=== PATIENT | female | born 1995 | race Caucasian/White ===

== ENCOUNTER → 2017-12-21 14:26 | Outpatient (CLI) | payer MEDICAID, SELFPAY ==
[2017-12-21 16:08] LABS: Absolute Neutrophil Count 8.5 X10^3/uL (2.0-7.7); Basophil# 0.01 X10^3/uL; Basophil% 0.1 % (0-1); Eosinophil# 0.07 X10^3/uL; Eosinophils% 0.6 % (0-5); Hematocrit 35.5 % (37-47); Mean Corp Hgb Conc 33.8 g/gl (32-36); Mean Corpuscular Volume 88.8 fL (81-99); Mean Platelet Vol. 10.2 fl (6.2-12.0); Monocyte# 0.92 X10^3/uL; Monocyte% 8.5 % (0-10); Neutrophil % 78.5 % (47-70); Platelet Count 227 K/mm3 (150-450); RBC Distribution Width CV 13.2 % (11.6-14.6); RBC Distribution Width SD 41.9 fl (35.1-43.9); White Blood Count 10.8 K/mm3 (4.4-11.0)
[2017-12-21 16:10] LABS: POSITIVE COUNT NO; POSITIVE DIFFERENTIAL NO; POSITIVE MORPHOLOGY NO
[2017-12-21 16:31] LABS: Thyroid Stim Hormone (TSH) 1.33 uIU/mL (0.358-3.74)
[2017-12-21 16:56] LABS: Color, Urine Straw (Yellow); Glucose, Dipstick Normal (Normal); Ketone-Dipstick Negative (Negative); Leukocyte Esterase-Dipstick Negative /ul (Negative); Nitrite-Dipstick Negative (Negative); Occult Blood-Urine Negative /ul (Negative); Protein-Dipstick Negative (Negative); Specific Gravity, Urine 1.015 (1.002-1.030); Urine Bilirubin Dipstick Negative (Negative); Urine Clarity Clear (Clear); Urine Urobilinogen Normal (Normal); Urine pH 6.5 (5.0 - 8.0)
[2017-12-21 17:08] LABS: Amphetamine Urine VISTA NEGATIVE (<1000 ng/mL); Barbiturate Urine VISTA NEGATIVE (< 200 ng/mL); Benzodiazepine Urine VISTA NEGATIVE (< 200 ng/mL); Cocaine Urine VISTA NEGATIVE (< 300 ng/mL); Ecstacy Urine VISTA NEGATIVE (< 500 ng/mL); Methadone Urine VISTA NEGATIVE (< 300 ng/mL); PCP Urine VISTA NEGATIVE (< 25 ng/mL); THC Urine VISTA NEGATIVE (< 50 ng/mL); Vista UDS pH Range 6
[2017-12-21 17:47] LABS: Chlamydia Trachomatis by PCR Negative (Negative); Neisserai gonorrhoeae by PCR Negative (Negative); Probe Check PASS; Sample Adequacy Control PASS; Specimen Processing Control PASS
[2017-12-21 18:56] LABS: COTININE Drug Screen Negative (<200 ng/mL)
[2017-12-22 02:34] LABS: Prenatal RPR NONREACTIVE (NONREACTIVE)
[2017-12-22 09:26] LABS: HIV - WCH Non-Reactive (Nonreactive); Rubella IgG > 500.0 IU/mL
[2017-12-22 11:28] LABS: HEPATITIS B SURFACE AG Negative (Negative); Hep C Antibodies <0.1 s/co ratio (0.0-0.9)
== END ==
PROVIDERS: Visit Provider Obstetrics & Gynecology
DX: Z34.82 Encounter for supervision of other normal pregnancy, second trimester (principal)
CPT/HCPCS: 36415; 80307; 81002; 84443; 85025; 86703; 86762; 86803; 87340; 87491; 87591

== ENCOUNTER → 2018-03-01 14:06 | Outpatient (CLI) | payer MEDICAID, SELFPAY ==
[2018-03-01 15:34] LABS: Hematocrit 31.3 % (37-47); Hemoglobin 10.4 g/dl (12.0-15.0); Mean Corp Hgb Conc 33.2 g/gl (32-36); Mean Corpuscular Hgb 29.5 pg (27.0-32.0); Mean Corpuscular Volume 88.7 fL (81-99); Mean Platelet Vol. 9.8 fl (6.2-12.0); Platelet Count 208 K/mm3 (150-450); RBC Distribution Width CV 13.6 % (11.6-14.6); RBC Distribution Width SD 44.2 fl (35.1-43.9); Red Blood Count 3.53 M/mm3 (4.2-5.4); White Blood Count 8.1 K/mm3 (4.4-11.0)
[2018-03-01 15:45] LABS: Scan Indicated on CBC? Y/N NO
[2018-03-01 15:48] LABS: Glucose Challenge Gest 1H 50g 156 mg/dL (70-140)
== END ==
PROVIDERS: Visit Provider Obstetrics & Gynecology
DX: Z34.83 Encounter for supervision of other normal pregnancy, third trimester (principal)
CPT/HCPCS: 36415; 82950; 85027

== ENCOUNTER → 2018-03-12 06:53 | Outpatient (CLI) | payer MEDICAID, SELFPAY ==
[2018-03-12 07:48] LABS: Glucose GTT-Gestation. Fasting 81 mg/dL (<105)
[2018-03-12 09:55] LABS: Glucose GTT-Gestational 1 Hr 158 mg/dL (<190)
[2018-03-12 09:56] LABS: Glucose GTT-Gestational 2 Hr 135 mg/dL (<165)
[2018-03-12 11:46] LABS: Glucose GTT-Gestational 3 Hr 125 L (<145)
== END ==
PROVIDERS: Family Provider Family Medicine; PCP Family Medicine; Visit Provider Obstetrics & Gynecology
DX: O24.912 Unspecified diabetes mellitus in pregnancy, second trimester (principal); Z3A.00 Weeks of gestation of pregnancy not specified
CPT/HCPCS: 36415; 82951; 82952

== ENCOUNTER → 2018-04-26 16:09 | Outpatient (CLI) | payer MEDICAID, SELFPAY ==
[2018-04-26 17:05] LABS: Hematocrit 29.8 % (37-47); Hemoglobin 9.7 g/dl (12.0-15.0); Mean Corp Hgb Conc 32.6 g/gl (32-36); Mean Corpuscular Volume 86.1 fL (81-99); Mean Platelet Vol. 11.4 fl (6.2-12.0); Platelet Count 156 K/mm3 (150-450); RBC Distribution Width CV 13.7 % (11.6-14.6); RBC Distribution Width SD 42.7 fl (35.1-43.9); Red Blood Count 3.46 M/mm3 (4.2-5.4)
[2018-04-26 17:06] LABS: Scan Indicated on CBC? Y/N NO
[2018-04-26 17:07] LABS: International Normalized Ratio 1.1; Prothrombin Time (Protime)PT. 13.8 SECONDS (11.7-14.9)
[2018-04-26 17:08] LABS: Partial Thromboplast Time 29.7 Seconds (24.1-36.2)
[2018-04-26 17:15] LABS: AST(SGOT) 15 U/L (15-37); Alanine Aminotransfer ALT/SGPT 14 U/L (13-56); Creatinine, Serum 0.65 mg/dL (0.55-1.02); EST Glomerular Filtration Rate 124 mL/min (>60); Est Glom Filt Rate - Afr Amer 150 mL/min (>60); Uric Acid 6.8 mg/dL (2.6-6.0)
[2018-04-26 18:37] LABS: Group B Strep DNA By PCR Negative (Negative); Internal Control PASS; Probe Check PASS; Specimen Processing Control PASS
== END ==
PROVIDERS: Family Provider Family Medicine; PCP Family Medicine; Visit Provider Obstetrics & Gynecology
DX: O14.03 Mild to moderate pre-eclampsia, third trimester (principal); Z3A.36 36 weeks gestation of pregnancy
CPT/HCPCS: 36415; 82565; 84450; 84460; 84550; 85027; 85610; 85730; 87081; 87653

== ENCOUNTER → 2018-04-27 16:24 | Outpatient (CLI) | payer MEDICAID, SELFPAY ==
[2018-04-27 17:15] LABS: 24HR. UA Prot. Total Volume 3000 mL; Urine Protein (24 Hour) 28.8 mg/dL (<11.9)
== END ==
PROVIDERS: Visit Provider Obstetrics & Gynecology
DX: O14.03 Mild to moderate pre-eclampsia, third trimester (principal); Z3A.36 36 weeks gestation of pregnancy
CPT/HCPCS: 81050; 84156

== ENCOUNTER 2018-04-28 09:20 | Outpatient (CLI) | payer MEDICAID, SELFPAY ==
[2018-04-28 09:53] VITALS: BMI 40.0
[2018-04-28 10:25] LABS: ROM Internal Control Test YES-OK TO RESULT pt. (Internal QC); ROM Patient Test Negative (Negative)
--- NOTE | 2018-04-28 12:17 | OB.TRI.NOTE ---
- Problem List (1) 36 weeks gestation of Status: Acute (2) Pre-eclampsia, mild to moderate, third trimester Status: Acute (3) False labor before 37 completed weeks of gestation in third trimester Status: Acute History of Present Illness Date of Service: 04/28/18 Was patient seen by the physician?: Yes Reason For Visit: R/O LABOR Final JOSELITO: 05/23/18 Final JOSELITO Source: US <20 weeks Gestational age: 36 Weeks and 3 Days History of Present Illness: 22yo G1 @ 36 3/7wga presents with c/o fluid leaking and intermittent contractions. She is accompanied today by the father of the baby, Tye, and her parents. Denies vaginal bleeding. Fetus is active. On review of records patient with elevated BPs since 31 weeks gestational age and preeclamptic labs performed on 04/26-04/27. She denies pre-existing hypertension before , headaches, vision changes, shortness of breath or upper abdominal pain apart from menstrual like cramping sensation. 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 She is currently complete pre-requisites and does not do vigorous activity during the day. Allergies No Known Allergies Allergy (Verified 04/28/18 09:50) Physical Exam Vitals: BP 141-157/87-97 P 80 R 18 T 98.7 General: Alert, Oriented x3, Cooperative, No apparent distress HEENT: Atraumatic, Normocephalic Cardiovascular: Regular rate, Regular Rhythm, Normal S1, Normal S2 Lungs: Clear to auscultation, Normal air movement Abdomen: Soft, Non Tender, Non-Distended, Gravid Neurological: Neuro grossly intact, - - +1 b/l LE DTRs, +2 b/l UE DTRs, no clonus Estimated gestational size: Appropriate for gestational size Cervix Dilation (cm): 1 Station: -2 Effacement (%): 60 - cervix exam per NINO Coyle NST - FHR Rate Baby A Baseline: 135 Variability:: Moderate Accelerations:: 15 x 15 Decelerations:: None NST Reactive:: Yes FHR Category:: Category I Uterine Activity:: 2/10 min Impression/Plan Abnormal Lab Results 04/28/18 09:49 Vag Amniotic Fld Detect Negative A/P: 22yo G1 @ 36 3/7 wga with False labor < 37wga Preeclampsia without severe features -NST reactive -ROM plus negative and cervix not c/w labor -Prior labs reviewed: 04/27/18 24h urine protein 864mg 04/26/18 ALT 14, AST 15, Uric acid 6.8, Cr 0.65, PT/INR wnl, Hgb 9.7, Plt 156 -Discussed with patient and her family diagnosis of preeclampsia, what it is and potential signs and effects. Advise betamethasone injection as increased risk for iatragenic late delivery. Betamethasone side effects reviewed. Plan for repeat dosing in 24h with BP check. Will need NST with next visit, scheduled for 05/02/18. Si/sx preeclampsia requiring medical attention reviewed. Recommend delivery at 37+ weeks if remains unchanged. Advised to avoid stressful activities, otherwise, continue current level of activity. May continue schooling online. Code Visit Office Visits / Consults: [id number] OV L2 New
[2018-04-28] MEDS: Betamethasone/Betamethasone 30 MG/5 ML Vial 12 MG IM (12:18)
== END 2018-04-28 12:25 | disposition home or self-care (01) ==
LOC: WPOUT 09:40 → WP 09:41
PROVIDERS: Family Provider Family Medicine; PCP Family Medicine; Visit Provider Obstetrics & Gynecology
DX: O14.03 Mild to moderate pre-eclampsia, third trimester (principal); Z3A.36 36 weeks gestation of pregnancy; O47.03 False labor before 37 completed weeks of gestation, third trimester
CPT/HCPCS: 59025; 59050; 84112; 96372; 99218; G0378; J0702

== ENCOUNTER 2018-04-29 12:30 | Outpatient (CLI) | payer MEDICAID, SELFPAY ==
[2018-04-29] MEDS: Betamethasone/Betamethasone 30 MG/5 ML Vial 12 MG IM (12:40)
--- NOTE | 2018-04-30 21:46 | OB.TRI.PN ---
Progress Notes Date of Service: 04/29/18 Progress Note: 22yo G1 @ 36 4/7wga with preeclampsia without severe features presents for blood pressure check and betamethasone #2 of 2. Vitals reviewed, no worsening of BPs and patient asymptomatic per RN ROS. Betamethasone given and patient discharged to home. f/u as scheduled this week.
== END 2018-04-29 13:00 | disposition home or self-care (01) ==
LOC: WPOUT 12:38 → WP 12:38
PROVIDERS: Family Provider Family Medicine; PCP Family Medicine; Visit Provider Obstetrics & Gynecology
DX: O14.93 Unspecified pre-eclampsia, third trimester (principal); Z3A.36 36 weeks gestation of pregnancy
CPT/HCPCS: 96372; 99218; G0378; J0702

== ENCOUNTER 2018-05-04 07:24 | Inpatient (IN) | payer MEDICAID, SELFPAY ==
[2018-05-04 07:32] VITALS: BMI 42.3
[2018-05-04] MEDS: Lactated Ringers 1,000 ML 50 ML IV ×2 (08:10→13:50)
[2018-05-04 08:38] LABS: Hematocrit 29.4 % (37-47); Hemoglobin 9.6 g/dl (12.0-15.0); Mean Corp Hgb Conc 32.7 g/gl (32-36); Mean Corpuscular Volume 85.7 fL (81-99); Platelet Count 156 K/mm3 (150-450); RBC Distribution Width CV 13.9 % (11.6-14.6); Red Blood Count 3.43 M/mm3 (4.2-5.4)
[2018-05-04 08:40] LABS: Scan Indicated on CBC? Y/N NO
[2018-05-04 08:43] LABS: International Normalized Ratio 1.1; Prothrombin Time (Protime)PT. 14.2 SECONDS (11.7-14.9)
[2018-05-04 08:44] LABS: Partial Thromboplast Time 29.1 Seconds (24.1-36.2)
[2018-05-04] MEDS: Oxytocin 30 units/NS 500 ml 30 UNITS/500 ML IV.SOLN IV (08:49)
[2018-05-04 08:58] LABS: AST(SGOT) 53 U/L (15-37); Alanine Aminotransfer ALT/SGPT 163 U/L (13-56); Creatinine, Serum 0.74 mg/dL (0.55-1.02); EST Glomerular Filtration Rate 107 mL/min (>60); Est Glom Filt Rate - Afr Amer 129 mL/min (>60); Estimated Creatinine Clearance 91.51 ml/min; Uric Acid 8.1 mg/dL (2.6-6.0)
[2018-05-04] MEDS: Labetalol 100 MG Tablet PO (09:34)
[2018-05-04] MEDS: Labetalol 100 MG/20 ML Vial 20 MG IV ×3 (10:09→20:47)
[2018-05-04] MEDS: Mag Hydrox/Al Hydrox/Simeth 30 ML UDC PO (10:19)
[2018-05-04 10:20] LABS: Protein, Urine (Random) 260.1 mg/dL (<11.9); Protein:Creat Ratio 5582 mg/g CRE (0-200)
[2018-05-04] MEDS: Labetalol 100 MG/20 ML Vial 40 MG IV (12:09)
[2018-05-04] MEDS: fentaNYL-bupivacaine (epidural) 100 ML BAG EPIDURAL (13:00)
[2018-05-04] MEDS: Magnesium Sulfate 20 GM/500 ML BAG IV ×2 (13:41→23:42)
--- NOTE | 2018-05-04 16:16 | PCM.PN.OB ---
Subjective: No specific complaints. Has epidural in place. No complaints of visual disturbances or headache. Objective: AFeb BP now stable in 140/70 range. - Physical Exam General: Alert, Oriented x3, Cooperative, No apparent distress Lungs: Normal air movement Cardiovascular: Regular rate, Regular Rhythm Abdomen: Non Tender, Gravid, Appropriate for Gestational Age Extremities: Edema - 2+ pedal and edema of lower abdomen Skin: No rashes Neurological: Neuro grossly intact Psych/Mental Status: Normal Affect Comment: 5cm/90/0 Weight: 224 lb 3.362 oz Body Mass Index (BMI) 42.3 Laboratory Tests Past 24 Hrs 05/04/18 05/04/18 05/04/18 08:15 08:15 08:15 WBC 9.0 RBC 3.43 L Hgb 9.6 L Hct 29.4 L MCV 85.7 MCH 28.0 MCHC 32.7 RDW 13.9 RDW Differential 43.0 Plt Count 156 MPV 11.0 PT 14.2 INR 1.1 APTT 29.1 Creatinine Estim Creat Clear Calc Est GFR (MDRD) Af Amer Est GFR (MDRD) Non-Af Uric Acid AST ALT U Random Total Protein Urine Creatinine Protein/Creatinin Ratio Blood Type AB POSITIVE Antibody Screen NEGATIVE 05/04/18 05/04/18 08:15 08:15 WBC RBC Hgb Hct MCV MCH MCHC RDW RDW Differential Plt Count MPV PT INR APTT Creatinine 0.74 Estim Creat Clear Calc 91.51 Est GFR (MDRD) Af Amer 129 Est GFR (MDRD) Non-Af 107 Uric Acid 8.1 H AST 53 H ALT 163 H U Random Total Protein 260.1 H Urine Creatinine 46.60 Protein/Creatinin Ratio 5582 H Blood Type Antibody Screen Medical Necessity - Tobacco Use Smoking Status: Never smoker Assessment/Plan All Active Problems 36 weeks gestation of (Acute) Pre-eclampsia, mild to moderate, third trimester (Acute) False labor before 37 completed weeks of gestation in third trimester (Acute) Admitted with preeclampsia with elevated LFTs, uric acid and proteinuria. Now on pitocin at 5mu/min. Magnesium sulfate prophylaxis started. BP stable now after labetalol IV and PO. Continue monitoring for progress. Consider IUPC.
--- NOTE | 2018-05-04 17:38 | PCM.PN.OB ---
Subjective: Comfortable. Objective: Afeb VSS. FHR tracing CAT 1. - Physical Exam General: Alert, Oriented x3, Cooperative, No apparent distress Abdomen: Non Tender, Gravid, Appropriate for Gestational Age Extremities: No edema Skin: No rashes Neurological: Neuro grossly intact Psych/Mental Status: Normal Affect Comment: FD 0 station Weight: 224 lb 3.362 oz Body Mass Index (BMI) 42.3 Laboratory Tests Past 24 Hrs 05/04/18 05/04/18 05/04/18 08:15 08:15 08:15 WBC 9.0 RBC 3.43 L Hgb 9.6 L Hct 29.4 L MCV 85.7 MCH 28.0 MCHC 32.7 RDW 13.9 RDW Differential 43.0 Plt Count 156 MPV 11.0 PT 14.2 INR 1.1 APTT 29.1 Creatinine Estim Creat Clear Calc Est GFR (MDRD) Af Amer Est GFR (MDRD) Non-Af Uric Acid AST ALT U Random Total Protein Urine Creatinine Protein/Creatinin Ratio Blood Type AB POSITIVE Antibody Screen NEGATIVE 05/04/18 05/04/18 08:15 08:15 WBC RBC Hgb Hct MCV MCH MCHC RDW RDW Differential Plt Count MPV PT INR APTT Creatinine 0.74 Estim Creat Clear Calc 91.51 Est GFR (MDRD) Af Amer 129 Est GFR (MDRD) Non-Af 107 Uric Acid 8.1 H AST 53 H ALT 163 H U Random Total Protein 260.1 H Urine Creatinine 46.60 Protein/Creatinin Ratio 5582 H Blood Type Antibody Screen Medical Necessity - Tobacco Use Smoking Status: Never smoker Assessment/Plan All Active Problems 36 weeks gestation of (Acute) Pre-eclampsia, mild to moderate, third trimester (Acute) False labor before 37 completed weeks of gestation in third trimester (Acute) Now starting pushing efforts. Expect .
--- NOTE | 2018-05-04 18:11 | PCM.PN.OB ---
Subjective: More comfortable after second epidural placed. Objective: AFeb BP stable. FHR CAT 1 tracing - Physical Exam General: Alert, Oriented x3, Cooperative, No apparent distress Cardiovascular: Regular rate, Regular Rhythm Abdomen: Non Tender, Gravid, Appropriate for Gestational Age Extremities: Edema - 2+ Skin: No rashes Neurological: Neuro grossly intact Psych/Mental Status: Normal Affect Comment: CE 7/100/0 Weight: 224 lb 3.362 oz Body Mass Index (BMI) 42.3 Laboratory Tests Past 24 Hrs 05/04/18 05/04/18 05/04/18 08:15 08:15 08:15 WBC 9.0 RBC 3.43 L Hgb 9.6 L Hct 29.4 L MCV 85.7 MCH 28.0 MCHC 32.7 RDW 13.9 RDW Differential 43.0 Plt Count 156 MPV 11.0 PT 14.2 INR 1.1 APTT 29.1 Creatinine Estim Creat Clear Calc Est GFR (MDRD) Af Amer Est GFR (MDRD) Non-Af Uric Acid AST ALT U Random Total Protein Urine Creatinine Protein/Creatinin Ratio Blood Type AB POSITIVE Antibody Screen NEGATIVE 05/04/18 05/04/18 08:15 08:15 WBC RBC Hgb Hct MCV MCH MCHC RDW RDW Differential Plt Count MPV PT INR APTT Creatinine 0.74 Estim Creat Clear Calc 91.51 Est GFR (MDRD) Af Amer 129 Est GFR (MDRD) Non-Af 107 Uric Acid 8.1 H AST 53 H ALT 163 H U Random Total Protein 260.1 H Urine Creatinine 46.60 Protein/Creatinin Ratio 5582 H Blood Type Antibody Screen Medical Necessity - Tobacco Use Smoking Status: Never smoker Assessment/Plan All Active Problems 36 weeks gestation of (Acute) Pre-eclampsia, mild to moderate, third trimester (Acute) False labor before 37 completed weeks of gestation in third trimester (Acute) Progressing in labor. BP stable. Continues on magnesium sulfate prophylaxis.
[2018-05-04] MEDS: Ondansetron 4 MG/2 ML Vial IV (21:16)
--- NOTE | 2018-05-04 21:56 | PCM.PN.OB ---
Subjective: Uncomfortable despite epidural. Objective: Afeb BP 140s/80-90s - Physical Exam General: Alert, Oriented x3, Cooperative, No apparent distress Abdomen: Soft, Gravid, Appropriate for Gestational Age Extremities: Edema - 2+ Neurological: Neuro grossly intact Psych/Mental Status: Normal Affect Comment: FD Weight: 224 lb 3.362 oz Body Mass Index (BMI) 42.3 Intake and Output for Last 24 Hours 05/02/18 05/03/18 05/04/18 23:59 23:59 23:59 Intake Total 2200 / 2200 Output Total 1300 / 1300 Balance 900 / 900 Laboratory Tests Past 24 Hrs 05/04/18 05/04/18 05/04/18 08:15 08:15 08:15 WBC 9.0 RBC 3.43 L Hgb 9.6 L Hct 29.4 L MCV 85.7 MCH 28.0 MCHC 32.7 RDW 13.9 RDW Differential 43.0 Plt Count 156 MPV 11.0 PT 14.2 INR 1.1 APTT 29.1 Creatinine Estim Creat Clear Calc Est GFR (MDRD) Af Amer Est GFR (MDRD) Non-Af Uric Acid AST ALT U Random Total Protein Urine Creatinine Protein/Creatinin Ratio Blood Type AB POSITIVE Antibody Screen NEGATIVE 05/04/18 05/04/18 08:15 08:15 WBC RBC Hgb Hct MCV MCH MCHC RDW RDW Differential Plt Count MPV PT INR APTT Creatinine 0.74 Estim Creat Clear Calc 91.51 Est GFR (MDRD) Af Amer 129 Est GFR (MDRD) Non-Af 107 Uric Acid 8.1 H AST 53 H ALT 163 H U Random Total Protein 260.1 H Urine Creatinine 46.60 Protein/Creatinin Ratio 5582 H Blood Type Antibody Screen Medical Necessity - Tobacco Use Smoking Status: Never smoker Assessment/Plan All Active Problems 36 weeks gestation of (Acute) Pre-eclampsia, mild to moderate, third trimester (Acute) False labor before 37 completed weeks of gestation in third trimester (Acute) Pushing now. Some progress over last hour but pushing efforts limited by discomfort. FHR tracing Cat 1.
[2018-05-04 22:09] LABS: Absolute Lymphocyte Count 1.45 X10^3/ul (0.83-4.51); Absolute Neutrophil Count 13.9 X10^3/uL (2.0-7.7); Basophil# 0.02 X10^3/uL; Basophil% 0.1 % (0-1); Eosinophil# 0.02 X10^3/uL; Eosinophils% 0.1 % (0-5); Hematocrit 32.2 % (37-47); Hemoglobin 10.6 g/dl (12.0-15.0); Lymphocyte # 1.45 X10^3/ul (4.0); Lymphocyte % 8.5 % (19-41); Mean Corp Hgb Conc 32.9 g/gl (32-36); Mean Corpuscular Hgb 28.5 pg (27.0-32.0); Mean Corpuscular Volume 86.6 fL (81-99); Mean Platelet Vol. 11.3 fl (6.2-12.0); Monocyte# 1.63 X10^3/uL; Monocyte% 9.5 % (0-10); Neutrophil # 13.93 X10^3/uL (2.7-7.7); Neutrophil % 81.3 % (47-70); Platelet Count 157 K/mm3 (150-450); RBC Distribution Width CV 13.8 % (11.6-14.6); Red Blood Count 3.72 M/mm3 (4.2-5.4); White Blood Count 17.1 K/mm3 (4.4-11.0)
[2018-05-04 22:37] LABS: Differential Indicated SCAN CRITERIA MET; POSITIVE COUNT NO; POSITIVE DIFFERENTIAL YES; POSITIVE MORPHOLOGY NO
[2018-05-04 23:04] LABS: Differential Comment SCANNED; Platelet Estimate ADEQUATE (ADEQ); Polychromasia RARE
[2018-05-04] MEDS: Oxytocin 30 units/NS 500 ml 30 UNITS/500 ML IV.SOLN 334 UNITS IV (23:05)
[2018-05-04] MEDS: Oxytocin 30 units/NS 500 ml 30 UNITS/500 ML IV.SOLN 167 UNITS IV (23:35)
--- NOTE | 2018-05-04 23:41 | PCM.OB.VAG ---
Vaginal Delivery Maternal Presentation: Medically Indicated Induction 37w2d EGA admitted for induction of labor secondary to preeclampsia with elevated LFTs. Method of Induction: Pitocin Medical Reason for Induction: Preeclampsia, eclampsia Amniotic Membrane Rupture Type: Artificial Rupture of Membrane time: 814 Amniotic Fluid Description: Clear Final JOSELITO: 05/23/18 Final JOSELITO Source: US <20 weeks Gestational age: 37 Weeks and 2 Days [place] doctor who attended delivery (if requested by OB): Lucie Hazel Date of Procedure: 05/04/18 Pre-Operative Diagnosis: Labor Post-Operative Diagnosis: SAme Surgery/ Procedure Performed: Vacuum Assisted Vaginal Delivery Anesthesiologist: Fermín Parker Type of Anesthesia: Epidural Description of Procedure: Angie progressed to FD over 12 hours then pushed for 3 hours to bring the head to +2 station. Due to maternal fatigue and lack of progress the decision was made to assist the delivery with a Kiwi vacuum device. The Kiwi was placed with care to avoid the fontanelles. With gentle traction and maternal pushing efforts the baby's head was delivered over 3 contractions. The shoulders and body were then delivered. The baby was placed on mom's chest. Delayed cord clamping was employed. Venous cord blood gases were obtained. The cord was then clamped and cut. APGARs were 8/9. The placenta was delivered spontaneously intact with a centrally located 3VC. The uterus contracted well. The upper vagina and cervix were intact. A seconddegree posterior vaginal tear was repaired with 2-0 vicryl. The patient was continued on magnesium sulfate prophylaxis. She will be treated with an additional dose of labetalol at 80mg. Presentation: Vertex Placental Delivery Description: Spontaneous Placenta Disposition: [facility] Percentage of Placenta Abruption: 0 Cord Vessel Description: 3 Vessels Nuchal Cord Compression: Without compression Cord Entanglement: None Drain: Ambrocio to straight drain Estimated Blood Loss: 500cc A gender: Female (1 minute): 8 (5 minute): 9 Episiotomy Description: None Laceration: Midline, Vaginal Extension/lac, 2nd degree Medications given after delivery: IV Pitocin Complications: None
[2018-05-04] MEDS: Labetalol 100 MG/20 ML Vial 80 MG IV (23:45)
--- NOTE | 2018-05-04 23:50 | PCM.DCVAG ---
Discharge Diet: No Restrictions Discharge Activity: Return to Normal Activity, May Drive, May Shower Return to work on:: 07/02/18 May shower in (days): 0 May resume sexual activity in: 4-6 weeks Call your doctor if your incision/area has: Sudden Increased Bleeding, Increased Pain/ Swelling, Foul Smelling Discharge Call your doctor if you observe: Fever of 101 or Higher, Inability to urinate, Inability to have a bowel movement, Using more than one pad per hour, Shortness of breath, Chest pain, Calf discomfort, Uncontrolled pain Cleanse incision/area with: Soap & Water Additional Instructions: If you experience any of the following, contact your healthcare provider. Bleeding that soaks a pad every hour for 2 hours Fever 100.4 or higher Unrelieved incision or abdominal pain Swelling, redness, discharge or bleeding from your incision or episiotomy site Your incision begins to separate Problems urinating (including inability to urinate or burning while urinating). Visual changes Severe headache Flu-like symptoms Pain or redness in one of both of your breasts Pain, warmth, tenderness or swelling in your legs, especially the calf area Frequent nausea and vomiting Symptoms of depression or anxiety If you experience any of the following, call 911 or go to the nearest Emergency Room. Chest pain Problems breathing Seizure activity Partial or complete paralysis of a body part, slurred speech, weakness or drooping of the face, or a sudden inability to walk or hold your balance Allergies/Adverse Reactions: Allergies No Known Allergies Allergy (Verified 05/04/18 07:34) Medications to take at Discharge Ferrous Sulfate [Iron] 325 mg PO BID 04/28/18 Vit No.130/Iron/FA [ Tablet] 1 tab PO DAILY 04/28/18 Tums 1 tab PO PRN PRN 04/28/18 Ibuprofen 600 mg PO Q6H PRN PRN #30 tab 05/04/18 The following prescriptions were given: Ibuprofen 600 mg PO Q6H PRN PRN #30 tab PRN Reason: pain or cramping Please Follow Up With: Trever Smith MD When: 6 weeks, two weeks for blood pressure check Primary Care Physician: Milagros Dumont MD [Primary Care Provider] - Test Results: Test results from this visit will be discussed in further detail at your follow-up appointment, if applicable. Proposed Discharge Date: 05/06/18
[2018-05-05] VITALS (18 sets, daily range): BP systolic 100–131; BP diastolic 53–85; PULSE 80–95; RESP 14–18; TEMP 36.2–37; O2SAT 94–97
[2018-05-05] MEDS: Ibuprofen 600 MG Tablet PO ×2 (01:07→09:41)
[2018-05-05] MEDS: Labetalol 200 MG Tablet PO (01:14)
[2018-05-05 06:00] LABS: Hematocrit 23.7 % (37-47); Hemoglobin 7.9 g/dl (12.0-15.0); Mean Corp Hgb Conc 33.3 g/gl (32-36); Mean Corpuscular Volume 87.1 fL (81-99); Mean Platelet Vol. 11.4 fl (6.2-12.0); Platelet Count 131 K/mm3 (150-450); RBC Distribution Width CV 13.7 % (11.6-14.6); RBC Distribution Width SD 41.8 fl (35.1-43.9); Red Blood Count 2.72 M/mm3 (4.2-5.4); White Blood Count 26.6 K/mm3 (4.4-11.0)
[2018-05-05 06:02] LABS: Scan Indicated on CBC? Y/N NO
[2018-05-05 06:08] LABS: International Normalized Ratio 1.2; Prothrombin Time (Protime)PT. 15.1 SECONDS (11.7-14.9)
[2018-05-05 06:09] LABS: Partial Thromboplast Time 29.8 Seconds (24.1-36.2)
[2018-05-05 06:24] LABS: AST(SGOT) 32 U/L (15-37); Alanine Aminotransfer ALT/SGPT 96 U/L (13-56); Albumin, Serum 1.7 g/dL (3.2-5.0); Alkaline Phosphatase 117 U/L (45-117); Bilirubin, Direct 0.07 mg/dL (0.00-0.30); Globulin 2.8 g/dL (2.2-4.2); Protein, Total 4.5 g/dL (6.4-8.2)
--- NOTE | 2018-05-05 08:15 | PCM.PN.OB ---
Subjective: No specific complaints. No headache or visual changes. Breast feeding. Bleeding light. Objective: Afeb. BPs 100-116/53-69 Hgb 7.9 platelets 131. LFTs trending downward. Urine output adequate. - Physical Exam General: Alert, Oriented x3, Cooperative, No apparent distress Lungs: Clear to auscultation, Normal air movement Cardiovascular: Regular rate, Regular Rhythm Abdomen: Soft, Non Tender, Non-Distended, - - Fundus firm nontender Extremities: Edema - 1+ improving Skin: No rashes Neurological: Neuro grossly intact Psych/Mental Status: Normal Affect Comment: Lochia appropriate Vital Signs Temp Pulse Resp BP Pulse Ox 97.2 F L 80 18 106/58 L 94 05/05/18 06:30 05/05/18 06:30 05/05/18 06:30 05/05/18 06:30 05/05/18 03:30 Oxygen Delivery Method Room Air Weight: 224 lb 3.362 oz Body Mass Index (BMI) 42.3 Intake and Output for Last 24 Hours 05/03/18 05/04/18 05/05/18 23:59 23:59 23:59 Intake Total 2200 / 2200 650 / 650 Output Total 1300 / 1300 1110 / 1110 Balance 900 / 900 -460 / -460 Laboratory Tests Past 24 Hrs 05/04/18 05/04/18 05/04/18 08:15 08:15 08:15 WBC 9.0 RBC 3.43 L Hgb 9.6 L Hct 29.4 L MCV 85.7 MCH 28.0 MCHC 32.7 RDW 13.9 RDW Differential 43.0 Plt Count 156 MPV 11.0 Immature Gran % (Auto) Neut % (Auto) Lymph % (Auto) [place] % (Auto) Eos % (Auto) Baso % (Auto) Absolute Neuts (auto) Absolute Lymphs (auto) Total Counted Differential Comment Diff Path Review Platelet Estimate Polychromasia PT 14.2 INR 1.1 APTT 29.1 Creatinine Estim Creat Clear Calc Est GFR (MDRD) Af Amer Est GFR (MDRD) Non-Af Uric Acid Total Bilirubin Direct Bilirubin AST ALT Alkaline Phosphatase Total Protein Albumin Globulin U Random Total Protein Urine Creatinine Protein/Creatinin Ratio Blood Type AB POSITIVE Antibody Screen NEGATIVE 05/04/18 05/04/18 05/04/18 08:15 08:15 21:55 WBC 17.1 H RBC 3.72 L Hgb 10.6 L Hct 32.2 L MCV 86.6 MCH 28.5 MCHC 32.9 RDW 13.8 RDW Differential 42.0 Plt Count 157 MPV 11.3 Immature Gran % (Auto) 0.500 Neut % (Auto) 81.3 H Lymph % (Auto) 8.5 L [place] % (Auto) 9.5 Eos % (Auto) 0.1 Baso % (Auto) 0.1 Absolute Neuts (auto) 13.9 H Absolute Lymphs (auto) 1.45 Total Counted Not Reportable Differential Comment SCANNED Diff Path Review May foll Platelet Estimate ADEQUATE Polychromasia RARE PT INR APTT Creatinine 0.74 Estim Creat Clear Calc 91.51 Est GFR (MDRD) Af Amer 129 Est GFR (MDRD) Non-Af 107 Uric Acid 8.1 H Total Bilirubin Direct Bilirubin AST 53 H ALT 163 H Alkaline Phosphatase Total Protein Albumin Globulin U Random Total Protein 260.1 H Urine Creatinine 46.60 Protein/Creatinin Ratio 5582 H Blood Type Antibody Screen 05/05/18 05/05/18 05/05/18 05:45 05:45 05:45 WBC 26.6 H RBC 2.72 L Hgb 7.9 L Hct 23.7 L MCV 87.1 MCH 29.0 MCHC 33.3 RDW 13.7 RDW Differential 41.8 Plt Count 131 L MPV 11.4 Immature Gran % (Auto) Neut % (Auto) Lymph % (Auto) [place] % (Auto) Eos % (Auto) Baso % (Auto) Absolute Neuts (auto) Absolute Lymphs (auto) Total Counted Differential Comment Diff Path Review Platelet Estimate Polychromasia PT 15.1 H INR 1.2 APTT 29.8 Creatinine Estim Creat Clear Calc Est GFR (MDRD) Af Amer Est GFR (MDRD) Non-Af Uric Acid 9.0 H Total Bilirubin 0.20 Direct Bilirubin 0.07 AST 32 ALT 96 H Alkaline Phosphatase 117 Total Protein 4.5 L Albumin 1.7 L Globulin 2.8 U Random Total Protein Urine Creatinine Protein/Creatinin Ratio Blood Type Antibody Screen Medical Necessity - Tobacco Use Smoking Status: Never smoker Assessment/Plan All Active Problems 36 weeks gestation of (Acute) Pre-eclampsia, mild to moderate, third trimester (Acute) False labor before 37 completed weeks of gestation in third trimester (Acute) BP improved after delivery. Will continue magnesium sulfate prophylaxis until this evening. Will hold additional antihypertensives for now. Will recheck labs in am tomorrow. D/C amilcar. May increase PO intake to total fluids of 150cc/hr.
[2018-05-05] MEDS: Ferrous Sulfate 325 MG Tablet PO ×2 (09:41→18:46)
[2018-05-05] MEDS: Prenatal Vits Tablet 1 TABLET PO (09:42)
[2018-05-05] MEDS: Magnesium Sulfate 20 GM/500 ML BAG IV (11:34)
[2018-05-05] MEDS: Lactated Ringers 1,000 ML 15 ML IV (18:48)
--- NOTE | 2018-05-05 19:07 | NURSING ---
1850: amilcar Martinez/Matthias at this time
[2018-05-06 02:25] VITALS: BP 118/61; PULSE 99; RESP 16; TEMP 37.1
[2018-05-06 07:16] LABS: Absolute Neutrophil Count 13.4 X10^3/uL (2.0-7.7); Basophil# 0.01 X10^3/uL; Basophil% 0.1 % (0-1); Eosinophil# 0.09 X10^3/uL; Eosinophils% 0.5 % (0-5); Hematocrit 21.7 % (37-47); Hemoglobin 6.9 g/dl (12.0-15.0); Lymphocyte % 11.8 % (19-41); Mean Corp Hgb Conc 31.8 g/gl (32-36); Mean Corpuscular Hgb 27.9 pg (27.0-32.0); Mean Corpuscular Volume 87.9 fL (81-99); Mean Platelet Vol. 10.9 fl (6.2-12.0); Monocyte# 2.15 X10^3/uL; Monocyte% 12.1 % (0-10); Neutrophil # 13.36 X10^3/uL (2.7-7.7); Neutrophil % 75.2 % (47-70); Platelet Count 131 K/mm3 (150-450); RBC Distribution Width CV 14.7 % (11.6-14.6); RBC Distribution Width SD 46.9 fl (35.1-43.9); Red Blood Count 2.47 M/mm3 (4.2-5.4); White Blood Count 17.8 K/mm3 (4.4-11.0)
[2018-05-06 07:22] LABS: Differential Indicated SCAN CRITERIA MET; POSITIVE COUNT NO; POSITIVE DIFFERENTIAL YES; POSITIVE MORPHOLOGY YES
[2018-05-06 07:33] LABS: AST(SGOT) 19 U/L (15-37); Alanine Aminotransfer ALT/SGPT 65 U/L (13-56); Albumin, Serum 1.7 g/dL (3.2-5.0); Alkaline Phosphatase 101 U/L (45-117); Bilirubin, Direct < 0.05 mg/dL (0.00-0.30); Globulin 2.9 g/dL (2.2-4.2); Protein, Total 4.6 g/dL (6.4-8.2); Uric Acid 9.2 mg/dL (2.6-6.0)
[2018-05-06 08:00] VITALS: BP 133/73; PULSE 89; RESP 14; TEMP 36.8
[2018-05-06] MEDS: Prenatal Vits Tablet 1 TABLET PO (08:11)
[2018-05-06] MEDS: Ferrous Sulfate 325 MG Tablet PO (08:11)
--- NOTE | 2018-05-06 08:22 | PCM.PN.OB ---
Subjective: No specific complaints. Not lightheaded. Edema reduced. Bleeding light. Breast feeding. Objective: AFeb VSS Hgb mildly decreased but asymptomatic. LFTs decreasing. Platelets stable. - Physical Exam General: Alert, Oriented x3, Cooperative, No apparent distress Lungs: Clear to auscultation, Normal air movement Cardiovascular: Regular rate, Regular Rhythm Abdomen: Soft, Non Tender, Non-Distended, - - Fundus nontender Extremities: Edema - 1+ Skin: No rashes Neurological: Neuro grossly intact Psych/Mental Status: Normal Affect Comment: Lochia light Vital Signs Temp Pulse Resp BP Pulse Ox 98.7 F 99 16 118/61 97 05/06/18 02:25 05/06/18 02:25 05/06/18 02:25 05/06/18 02:25 05/05/18 20:00 Oxygen Delivery Method Room Air Weight: 224 lb 3.362 oz Body Mass Index (BMI) 42.3 Intake and Output for Last 24 Hours 05/04/18 05/05/18 05/06/18 23:59 23:59 23:59 Intake Total 2200 / 2200 1394.5 / 1394.5 Output Total 1300 / 1300 3455 / 3455 600 / 600 Balance 900 / 900 -2060.5 / -2060.5 -600 / -600 Laboratory Tests Past 24 Hrs 05/06/18 05/06/18 06:30 06:30 WBC 17.8 H RBC 2.47 L Hgb 6.9 L Hct 21.7 L MCV 87.9 MCH 27.9 MCHC 31.8 L RDW 14.7 H RDW Differential 46.9 H Plt Count 131 L MPV 10.9 Immature Gran % (Auto) 0.300 Neut % (Auto) 75.2 H Lymph % (Auto) 11.8 L [place] % (Auto) 12.1 H Eos % (Auto) 0.5 Baso % (Auto) 0.1 Absolute Neuts (auto) 13.4 H Absolute Lymphs (auto) 2.10 Total Counted Pending Uric Acid 9.2 H Total Bilirubin 0.10 L Direct Bilirubin < 0.05 AST 19 ALT 65 H Alkaline Phosphatase 101 Total Protein 4.6 L Albumin 1.7 L Globulin 2.9 Medical Necessity - Tobacco Use Smoking Status: Never smoker Assessment/Plan All Active Problems 36 weeks gestation of (Acute) Pre-eclampsia, mild to moderate, third trimester (Acute) False labor before 37 completed weeks of gestation in third trimester (Acute) Doing well on PP day#2. BPs remain lower. Hgb low so will take iron on discharge. Warning signs of preeclampsia given. Home going instructions and warnings given. Will discharge today and may release to hotel status if baby stays for observation.
--- NOTE | 2018-05-06 08:26 | PCM.DC.SUM ---
Discharge Date and Diagnosis Date of Admission: 05/04/18 Date of Discharge: 05/06/18 - Primary Discharge Diagnosis Preeclampsia, S/P vacuum assisted vaginal delivery Hospital Course and Treatment Consultations 05/04/18 07:26 Consult: Anesthesia Routine Comment: Reason For Exam: LABOR Operations: None Procedures: - - Epidural, pitocin induction, vacuum assisted vaginal delivery Summary of Care Provided: The patient is a 22 year old F [ admitted for induction of labor at 37w2d ega due to worsening preeclampsia with elevated LFTs. Pitocin induction started and once labor active started on magnesium sulfate prophylaxis. Progressed to FD then pushed for 2 hours to bring head to +2 station Vacuum assisted delivery was then performed without complication. Post her labs trended towards normalization and BPs improved. Hgb was low but appropriate considering low starting hgb prior to labor. Discharged home on PP day#2.] Discharge Diet: No Restrictions Discharge Activity: Return to Normal Activity, May Drive, May Shower Return to work on:: 07/02/18 May shower in (days): 0 May resume sexual activity in: 4-6 weeks Call your doctor if your incision/area has: Sudden Increased Bleeding, Increased Pain/ Swelling, Foul Smelling Discharge Call your doctor if you observe: Fever of 101 or Higher, Inability to urinate, Inability to have a bowel movement, Using more than one pad per hour, Shortness of breath, Chest pain, Calf discomfort, Uncontrolled pain Cleanse incision/area with: Soap & Water Home Medications: Medications to take at Discharge Ferrous Sulfate [Iron] 325 mg PO BID 04/28/18 Vit No.130/Iron/FA [ Tablet] 1 tab PO DAILY 04/28/18 Tums 1 tab PO PRN PRN 04/28/18 Ibuprofen 600 mg PO Q6H PRN PRN #30 tab 05/04/18 Following Prescrptions Were Given to Patient: Ibuprofen 600 mg PO Q6H PRN PRN #30 tab PRN Reason: pain or cramping Primary Care Physician: Milagros Dumont MD [Primary Care Provider] - Please Follow Up With: Trever Smith MD When: 6 weeks Disposition: Home Minutes spent on discharge:: 15 Patient Condition:: Good Medical Necessity - Tobacco Use Smoking Status: Never smoker Meaningful Use Info Meaningful Use Diagnoses (Choose all that apply): None applicable
[2018-05-06 12:11] VITALS: BP 129/75; PULSE 88; RESP 14; TEMP 36.6
[2018-05-06 15:56] VITALS: BP 137/79; PULSE 112; RESP 16; TEMP 37.5
--- NOTE | 2018-05-06 16:00 | NURSING ---
rx for motrin given to patient. denies need for further discharge instruction. Infant placed in car seat by father.
--- NOTE | 2018-05-06 16:24 | NURSING ---
1600 lab order for bili given to pt for to be done tomorrow if unable to get a appointment with ped.on Monday
[2018-05-07 13:40] LABS: Pathologist Review Reviewed
[2018-05-07 13:55] LABS: Pathologist Review Reviewed
== END 2018-05-06 16:15 | disposition home or self-care (01) | DRG 372 ==
PROVIDERS: Admitting Provider Obstetrics & Gynecology; Family Provider Family Medicine; PCP Family Medicine; Visit Provider Obstetrics & Gynecology
DX: O75.81 Maternal exhaustion complicating labor and delivery (principal); O14.04 Mild to moderate pre-eclampsia, complicating childbirth; Z3A.37 37 weeks gestation of pregnancy; Z37.0 Single live birth; O71.4 Obstetric high vaginal laceration alone
CPT/HCPCS: 59025; 59050; 80076; 82565; 82570; 84156; 84450; 84460; 84550; 85025; 85027; 85610; 85730; 86850; 86900; 99218; J7120; G0378; J2405